=== PATIENT | male | born 1955 | race Caucasian/White ===

== ENCOUNTER 2020-04-24 12:42 | Emergency (ER) | payer MEDICARE ==
[2020-04-24 13:06] VITALS: BP 137/75; PULSE 94; RESP 18; TEMP 98.4
--- NOTE | 2020-04-24 13:24 | ED ---
ENT HPI - General Chief complaint: ENT Stated complaint: Poss Broken Nose Time Seen by Provider: 04/24/20 13:05 Source: patient Mode of arrival: ambulatory Limitations: language barrier - History of Present Illness Initial comments: Patient is a 64-year-old male presenting to the emergency Department with complaints of a possible fractured nose. Patient states yesterday he bent over to pick a rag off the ground floor when his face came in contact with the bar of the lawnmower. Patient states he did not lose consciousness. He states his nose did bleed slightly and he does have some bruising. Patient states his kids that were telling him he needs to go be seen for possible fractured nose. Patient states his nose is very tender to the touch. He denies any headaches, blurry vision, dizziness. He denies any eye pain. He states he is unsure if he is on a blood thinner or not, he does not believe so. He denies any chest pain or shortness of breath. He has no further complaints at this time. Upon arrival to the ER, his vitals are stable. - Related Data Allergies Allergy/AdvReac Type Severity Reaction Status Date / Time No Known Allergies Allergy Verified 04/24/20 13:05 Review of Systems ROS Statement: Those systems with pertinent positive or pertinent negative responses have been documented in the HPI. ROS Other: All systems not noted in ROS Statement are negative. Past Medical History Past Medical History: Hypertension History of Any Multi-Drug Resistant Organisms: None Reported Past Surgical History: Cholecystectomy, Hernia Repair Past Psychological History: No Psychological Hx Reported Smoking Status: Current every day smoker Past Alcohol Use History: None Reported Past Drug Use History: None Reported General Exam - General Exam Comments Initial Comments: GENERAL: Patient is well-developed and well-nourished. Patient is nontoxic and in no acute distress. HEAD: Atraumatic, normocephalic. No signs of a hematoma. EYES: Pupils equal round and reactive to light, extraocular movements intact, sclera anicteric, conjunctiva are normal. Eyelids were unremarkable. Patient does have bruising underneath both eyes. ENT: TMs normal, nares patent, oropharynx clear without exudates. Moist mucous membranes. There is no septal hematoma. Patient does have significant tenderness of the nasal bone along with bruising. NECK: Normal range of motion, supple without lymphadenopathy or JVD. No midline tenderness. LUNGS: Unlabored respirations. Breath sounds clear to auscultation bilaterally and equal. No wheezes rales or rhonchi. HEART: Regular rate and rhythm without murmurs, rubs or gallops. ABDOMEN: Soft, nontender, normoactive bowel sounds. No guarding, no rebound. No masses appreciated. : Deferred MUSCULOSKELETAL: Normal extremities with adequate strength and normal range of motion, no pitting or edema. No clubbing or cyanosis. NEUROLOGICAL: Patient is alert and oriented x 3. Motor and sensory are also intact. Cranial nerves II through XII grossly intact. Symmetrical smile. Normal speech, normal gait. PSYCH: Normal mood, normal affect. SKIN: Warm, Dry, normal turgor, no rashes or lesions noted. Limitations: language barrier Course Vital Signs 04/24/20 13:01 Temperature 98.4 F Pulse Rate 94 Respiratory 18 Rate Blood Pressure 137/75 O2 Sat by Pulse 96 Oximetry Medical Decision Making - Medical Decision Making Patient is a 64-year-old male here for a possible fractured nose that happened yesterday. He came in contact with the handle of his lawnmower when he bent over. He is unsure if he is on blood thinner. He denies loss of consciousness, headache, dizziness. He has no acute neuro deficits. He does have some bruising underneath both eyes as well as tenderness over the nasal bone. CT of the facial bones reveal no acute fractures. I discussed this with the patient. He will continue with ice packs, Tylenol or Motrin for discomfort. He is in agreement with this plan of care. He is stable for discharge. Patient will follow up with his PCP. Disposition Clinical Impression: Contusion of nose Disposition: HOME SELF-CARE Condition: Stable Instructions (If sedation given, give patient instructions): Nasal Contusion (ED) Additional Instructions: Please return to the Emergency Department if symptoms worsen or any other concerns. Use ice to the area, Tylenol or ibuprofen for discomfort. Follow-up with PCP. Is patient prescribed a controlled substance at d/c from ED?: No Referrals: Devin Draper PAC [Primary Care Provider] - 1-2 days
--- NOTE | 2020-04-24 14:03 | CT ---
EXAMINATION TYPE: CT facial bones wo con DATE OF EXAM: 04/24/2020 COMPARISON: None HISTORY: 64-year-old male Fall and struck face on mower, bruising noses and eyes TECHNIQUE: Contiguous axial scanning of the facial bones without IV contrast. Coronal reconstructions performed. CT DLP: 1117.4 mGycm Automated exposure control for dose reduction was used. FINDINGS: There is hematoma and soft tissue contusion along the bridge of the nose and medial preseptal regions . No underlying acute facial bone or nasal bone fractures seen. Orbits and globes appear intact. Mild mucosal thickening ethmoid air cells and leftward nasal septal deviation. IMPRESSION: HEMATOMA AND SOFT TISSUE CONTUSION ALONG THE BRIDGE OF THE NOSE AND MEDIAL PRESEPTAL REGIONS. NO UNDE RLYING ACUTE FACIAL BONE FRACTURE IDENTIFIED. MILD CHRONIC ETHMOID SINUS DISEASE AND LEFTWARD NASAL SEPTAL DEVIATION.
--- NOTE | 2020-04-24 15:55 | CT ---
EXAMINATION TYPE: CT brain wo con DATE OF EXAM: 04/24/2020 COMPARISON: None HISTORY: 64-year-old male Fall and struck face on mower, bruising noses and eyes TECHNIQUE: Examination was done in axial plane without intravenous contrast. Coronal and sagittal r econstructions performed. CT DLP: 1117.4 mGycm Automated exposure control for dose reduction was used. FINDINGS: There is no evidence of acute intracranial hemorrhage, acute ischemic changes, mass, mass-effect, or extra-axial fluid collection. There is no effacement of cerebral sulci or basal subarachnoid cister ns. There is no hydrocephalus. There is no midline shift. Hammond-white matter distinction is preserv ed. Slightly high density of the blood pool may reflect dehydration. Clinically correlate. Facial bones reported separately. Scattered mild thickening throughout the ethmoid air cells. Mastoid air cells are well pneumatized. No calvarial fracture. IMPRESSION: No acute intracranial abnormality seen. Facial bones reported separately.
== END 2020-04-24 14:13 | disposition home or self-care (01) ==
LOC: EC 12:42
DX: S00.83XA Contusion of other part of head, initial encounter (principal); F17.200 Nicotine dependence, unspecified, uncomplicated; W22.8XXA Striking against or struck by other objects, initial encounter
CPT/HCPCS: 70450; 70486; 99283